=== PATIENT | female | born 1940 | race Caucasian/White ===

== ENCOUNTER 2018-01-27 13:45 | Inpatient (IN) | payer OTHER ==
[~2018-01-27] VITALS: Ht 152.4 cm; Wt 65.3 kg
[2018-01-27] MEDS ORDERED: PEPCID40 MG PO (14:35)
== END 2018-02-05 20:51 | disposition home or self-care (01) | DRG 331 ==
LOC: SURG 02-03 05:45 → O/R 02-03 05:45 → SURG 02-03 07:00
PROVIDERS: Colon & Rectal Surgery
PROC: 0DJD8ZZ Inspection of Lower Intestinal Tract, Via Natural or Artificial Opening Endoscopic (ICD-10-PCS; 2018-02-03)
PROC: 4A033R1 Measurement of Arterial Saturation, Peripheral, Percutaneous Approach (ICD-10-PCS; 2018-02-03)
PROC: 4A12X4Z Monitoring of Cardiac Electrical Activity, External Approach (ICD-10-PCS; 2018-02-03)
PROC: 0DTN4ZZ Resection of Sigmoid Colon, Percutaneous Endoscopic Approach (ICD-10-PCS; principal; 2018-02-03 07:00)
DX: K57.32 Diverticulitis of large intestine without perforation or abscess without bleeding (principal); G47.33 Obstructive sleep apnea (adult) (pediatric)

== ENCOUNTER 2018-02-07 19:44 | Emergency (ER) | payer OTHER ==
[~2018-02-07] VITALS: Ht 154.9 cm; Wt 63.5 kg
[~2018-02-07 19:44] MED LIST: PEPCID40 MG PO
[2018-02-07] MEDS ORDERED: LEVAQUIN500 MG (20:17)
== END 2018-02-07 21:23 | disposition home or self-care (01) ==
LOC: ER 19:44
DX: K59.09 Other constipation (principal)

== ENCOUNTER 2019-02-05 09:10 | Day surgery (SDC) | payer OTHER ==
[~2019-02-05 09:10] MED LIST changes: +LEVAQUIN500 MG
== END 2019-02-05 16:35 | disposition home or self-care (01) ==
LOC: AMB-ENDOS 09:10
DX: K57.32 Diverticulitis of large intestine without perforation or abscess without bleeding (principal); K64.1 Second degree hemorrhoids

== ENCOUNTER 2019-12-16 09:28 | Emergency (ER) | payer OTHER ==
[~2019-12-16] VITALS: Ht 154.9 cm; Wt 63.5 kg
[2019-12-16] MEDS ORDERED: LIPITOR20 MG PO (09:40)
[2019-12-16] MEDS ORDERED: MAGNESIUM500 MG PO (09:40)
[2019-12-16] MEDS ORDERED: ASPIR 8181 MG PO (09:40)
[2019-12-16] MEDS ORDERED: NEXIUM20 M1 PO (09:41)
== END 2019-12-16 13:46 | disposition home or self-care (01) ==
LOC: ER 09:28
DX: J44.9 Chronic obstructive pulmonary disease, unspecified (principal); R06.02 Shortness of breath

== ENCOUNTER 2020-01-05 07:32 | Emergency (ER) | payer OTHER ==
[~2020-01-05] VITALS: Ht 154.9 cm; Wt 66.2 kg
[~2020-01-05 07:32] MED LIST changes: +ASPIR 8181 MG PO; +LIPITOR20 MG PO; +MAGNESIUM500 MG PO; +NEXIUM20 M1 PO
== END 2020-01-05 15:21 | disposition home or self-care (01) ==
LOC: ER 07:32 → CPU-OBS 08:00 → ER 15:21
DX: R07.89 Other chest pain (principal)

== ENCOUNTER 2020-10-29 09:00 | Emergency (ER) | payer OTHER ==
[~2020-10-29] VITALS: Ht 154.9 cm; Wt 63.5 kg
[2020-10-29] MEDS ORDERED: LEVO-T25 MCG PO (09:22)
[2020-10-29] MEDS ORDERED: ALBUTEROL2.5 MG/3 M IH (09:23)
[2020-10-29] MEDS ORDERED: FLONASE16 GM NS (09:23)
[2020-10-29] MEDS ORDERED: BREO ELLIPTA I1 EACH IH (09:23)
[2020-10-29] MEDS ORDERED: NEXIUM20 M1 PO (09:24)
== END 2020-10-29 13:39 | disposition home or self-care (01) ==
LOC: ER 09:00
DX: K59.09 Other constipation (principal); R10.84 Generalized abdominal pain